=== PATIENT | female | born 2000 | race Caucasian/White ===

== ENCOUNTER 2020-08-20 19:59 | Emergency (ER) | payer MEDICAID ==
[~2020-08-20] VITALS: Ht 154.9 cm; Wt 82.0 kg
[2020-08-20 23:27] LABS: EOSINOPHILS % 1.4 % (0.0-5.0); HEMATOCRIT. 38.4 % (36.0-48.0); LYMPHOCYTES % 17.6 % (20.0-50.0); MEAN CORPUSCULAR HEMOGLOBIN 29.4 pg (28.0-32.0); MEAN CORPUSCULAR VOLUME 86.8 fL (81.0-99.0); MEAN PLATELET VOLUME 8.8 fl (7.4-10.4); MONOCYTES % 4.8 % (2.0-8.0); NEUTROPHILS % 75.2 % (40.0-76.0); PLATELET 307 x1000/uL (130-400); RED BLOOD CELL COUNT 4.43 mill/uL (4.2-5.4)
[2020-08-20 23:32] LABS: CHLORIDE 106 mEq/L (98-107)
[2020-08-20 23:56] LABS: B-HCG QUANTITATIVE 47355 mIU/mL (<3)
[2020-08-21 00:25] VITALS: BP 124/81
== END 2020-08-21 00:26 | disposition home or self-care (01) ==
LOC: ER 19:59
DX: O20.9 Hemorrhage in early pregnancy, unspecified (principal); Z3A.11 11 weeks gestation of pregnancy; O26.891 Other specified pregnancy related conditions, first trimester; R03.0 Elevated blood-pressure reading, without diagnosis of hypertension
CPT/HCPCS: 36415; 76801; 80053; 84702; 85025; 86850; 86900; 93005; 99285

== ENCOUNTER 2025-08-04 08:36 | Emergency (ER) | payer MEDICAID, OTHER ==
[~2025-08-04] VITALS: Ht 152.4 cm; Wt 100.0 kg
[2025-08-04 08:49] VITALS: O2SAT 100
[2025-08-04 09:43] LABS: BASOPHILS % 0.5 % (0.0-2.0); EOSINOPHILS % 2.0 % (0.0-5.0); HEMATOCRIT. 32.4 % (36.0-48.0); HEMOGLOBIN. 10.7 g/dL (12.0-16.0); LYMPHOCYTES % 28.8 % (20.0-50.0); MEAN PLATELET VOLUME 8.6 fl (7.4-10.4); MONOCYTES % 5.8 % (2.0-8.0); NEUTROPHILS % 62.9 % (40.0-76.0); PLATELET 364 x1000/uL (130-400); RED BLOOD CELL COUNT 3.88 mill/uL (4.2-5.4); RED CELL DISTRIBUTION WIDTH 14.1 % (11.6-14.6)
[2025-08-04 09:59] LABS: UREA NITROGEN BLOOD 7 mg/dL (9-23)
[2025-08-04 10:00] LABS: CREATININE 0.6 mg/dL (0.6-1.0)
[2025-08-04 10:01] LABS: B-HCG QUANTITATIVE < 1 mIU/mL (<6)
[2025-08-04 10:20] LABS: HCG SCREEN NEGATIVE
[2025-08-04 10:22] LABS: CLARITY URINE TURBID (CLEAR); COLOR URINE BLOODY (YELLOW)
[2025-08-04 10:25] LABS: PH URINE 6.0 (4.5-8.0); SPECIFIC GRAVITY URINE 1.030 (1.005-1.030)
[2025-08-04 10:26] LABS: GLUCOSE URINE NEGATIVE (NEGATIVE); KETONES URINE NEGATIVE (NEGATIVE); LEUKOCYTE ESTERASE URINE NEGATIVE (NEGATIVE); NITRITE URINE NEGATIVE (NEGATIVE); OCCULT BLOOD URINE 3+ (NEGATIVE); PROTEIN URINE 3+ (NEGATIVE); UROBILINOGEN URINE 1.0 E.U./dL (0.2-1.0)
[2025-08-04 10:32] LABS: RBC URINE TNTC /hpf (0-2)
[2025-08-04 10:34] LABS: BACTERIA URINE TRACE; SQUAMOUS EPITHELIAL CELL URINE NONE SEEN /lpf (RARE/1+)
[2025-08-04] MEDS ORDERED: FERR325T6 MT (12:04)
[2025-08-04 12:21] VITALS: BP 151/91; PULSE 95; RESP 16; TEMP 36.9; O2SAT 99
== END 2025-08-04 12:22 | disposition home or self-care (01) ==
LOC: ER 08:36
DX: N93.9 Abnormal uterine and vaginal bleeding, unspecified (principal); D64.9 Anemia, unspecified; R10.20 Pelvic and perineal pain unspecified side
CPT/HCPCS: 36415; 76830; 76856; 80048; 81003; 81025; 84702; 84703; 85025; 86850; 86900; 99284